=== PATIENT | female | born 1990 | race Caucasian/White ===

== ENCOUNTER 2017-04-23 20:46 | Emergency (ER) | payer OTHER ==
[2017-04-23] MEDS ORDERED: oxyCODONE TAB* 5 MG TAB PO ONE (21:12)
--- NOTE | 2017-04-23 21:35 | ED ---
Hitesh Washington Jason, scribed for Malissa Gramajo MD on 04/23/17 at 2115 . Burn - HPI Summary HPI Summary: This patient is a 26 year old F presenting to [facility] with a chief complaint of left hand burn since 1800. The patient states that she grabbed the handle of a pot that was in an oven and received a burned. The patient rates the pain 5/10 in severity. Symptoms aggravated by nothing. Symptoms alleviated by nothing. Additionally, she reports taking two Tylenol tablets at 1800 for the pain. - History of Current Complaint Chief Complaint: EDBurnSmokeInh Stated Complaint: BURN ON LT HAND Time Seen by Provider: 04/23/17 21:05 Hx Obtained From: Patient Occurred: Hours Ago - at 1800 Length of Exposure: Seconds Pain Intensity: 5 Pain Scale Used: 0-10 Numeric Location: LLE - left hand Character: Scald Aggravating: Nothing Alleviating: Nothing - Allergy/Home Medications Allergies/Adverse Reactions: Allergies Allergy/AdvReac Type Severity Reaction Status Date / Time Pertussis Vaccine Allergy Severe Anaphylatic Verified 04/23/17 20:53 Shock PMH/Surg Hx/FS Hx/Imm Hx Previously Healthy: No Respiratory History: Reports: Hx Asthma - mild Opthamlomology History: Denies: Hx Legally Blind EENT History: Denies: Hx Deafness Psychiatric History: Reports: Hx Attention Deficit Hyperactivity Disorder Infectious Disease History: No Infectious Disease History: Denies: Traveled Outside the [place] in Last 30 Days - Family History Known Family History: Positive: Diabetes - in Grandmother, Other - Grandmother and grandfather had cancer - Social History Occupation: Employed Full-time Review of Systems Negative: Fever Positive: Other - left hand burn All Other Systems Reviewed And Are Negative: Yes Physical Exam - Summary Physical Exam Summary: VITAL SIGNS: Reviewed. GENERAL: ~Patient is a well-developed and nourished female who is lying comfortable in the stretcher. Patient is not in any acute respiratory distress. HEAD AND FACE: No signs of trauma. No ecchymosis, hematomas or skull depressions. No sinus tenderness. EYES: PERRLA, EOMI x 2, No injected conjunctiva, no nystagmus. EARS: Hearing grossly intact. Ear canals and tympanic membranes are within normal limits. MOUTH: Oropharynx within normal limits. NECK: Supple, trachea is midline, no adenopathy, no JVD, no carotid bruit, no c- spine tenderness, neck with full ROM. CHEST: Symmetric, no tenderness at palpation LUNGS: Clear to auscultation bilaterally. No wheezing or crackles. CVS: Regular rate and rhythm, S1 and S2 present, no murmurs or gallops appreciated. ABDOMEN: Soft, non-tender. No signs of distention. No rebound no guarding, and no masses palpated. Bowel sounds are normal. EXTREMITIES: FROM in all major joints, no edema, no cyanosis or clubbing. NEURO: Alert and oriented x 3. No acute neurological deficits. Speech is normal and follows commands. SKIN: Dry and warm. First degree burn to the palmar surface of the left thumb. Triage Information Reviewed: Yes Vital Signs On Initial Exam: Initial Vitals Temp Pulse Resp BP Pulse Ox 98.6 F 72 14 143/60 100 04/23/17 20:51 04/23/17 20:51 04/23/17 20:51 04/23/17 20:51 04/23/17 20:51 Vital Signs Reviewed: Yes Burn Calculation - Ursina Formula for Fluid Resuscitation Weight: 90.718 kg 24 -Hour Fluid Replacement: 0.0 Diagnostics - Vital Signs Vital Signs Temp Pulse Resp BP Pulse Ox 04/23/17 20:51 98.6 F 72 14 143/60 100 - Laboratory Lab Statement: Any lab studies that have been ordered have been reviewed, and results considered in the medical decision making process. Burn Course/Dx - Course Course Of Treatment: This patient is a 26 year old F presenting to [facility] with a chief complaint of left hand burn since 1800. The patient states that she grabbed the handle of a pot that was in an oven and received a burned. The patient rates the pain 5/10 in severity. Symptoms aggravated by nothing. Symptoms alleviated by nothing. Additionally, she reports taking two Tylenol tablets at 1800 for the pain. Assessment/Plan: In the ED course the patient was given oxycodone. Patient will be discharged and follow up from PCP. The patient is agreeable with this plan. - Diagnoses Provider Diagnosis: First degree burn Discharge - Discharge Plan Condition: Stable Disposition: HOME Prescriptions: oxyCODONE/Acetamin 5/325 MG* [Percocet 5/325 TAB*] 1 tab PO Q6H PRN #14 tab MDD 4 PRN Reason: Pain - Moderate To Severe Silver Sulfadiazine 1%* [SILVadine 1%*] 1 applic TOPICAL BID #1 jar Additional Instructions: Take medications as directed. RETURN TO THE EMERGENCY DEPARTMENT FOR CHANGING OR WORSENING SYMPTOMS. The documentation as recorded by the Hitesh jules Jason accurately reflects the service I personally performed and the decisions made by me, Malissa Gramajo MD.
[2017-04-23 21:50] VITALS: BP 136/69
== END 2017-04-23 21:52 | disposition home or self-care (01) ==
LOC: ED 20:46
DX: T23.102A Burn of first degree of left hand, unspecified site, initial encounter (principal); X15.8XXA Contact with other hot household appliances, initial encounter; Y93.9 Activity, unspecified; Y92.9 Unspecified place or not applicable
CPT/HCPCS: 99282; A9270-GY